=== PATIENT | female | born 1990 | race Asian ===

== ENCOUNTER 2017-03-21 21:26 | Inpatient (IN) | payer OTHER ==
[~2017-03-21] VITALS: Ht 170.2 cm; Wt 75.8 kg
[2017-03-21 21:42] VITALS: BP 95/65
[2017-03-21 23:55] VITALS: BP 114/72
[2017-03-22] VITALS (8 sets, daily range): BP systolic 95–106; BP diastolic 56–64
[2017-03-22] MEDS ORDERED: OXYTOCIN 30 UNITS IN 0.9% NaCl 500ML IV BAG (J2590) As Ordered ONE (00:42)
[2017-03-22 01:42] LABS: MEAN CORPUSCULAR HEMOGLOBIN 31.6 pg (27.0-33.0); MEAN CORPUSCULAR HGB CONC 36.2 g/dl (32.0-36.5); MEAN CORPUSCULAR VOLUME 87.2 fl (80.0-96.0); RED CELL DISTRIBUTION WIDTH 12.2 % (11.5-14.5)
[2017-03-22] MEDS ORDERED: OXYTOCIN DRIP 30 UNITS in APPROPRIATE DILUENT 1 EA IV SCH (03:07)
[2017-03-22] MEDS ORDERED: RHOGAM 300 MCG (1500 IU) INJ (J2790) IM SCH (03:15)
[2017-03-22] MEDS ORDERED: METOCLOPRAMIDE INJ 10MG/2ML VIAL (J2765) IV PRN (03:15)
[2017-03-22] MEDS ORDERED: IBUPROFEN 800 MG TAB PO PRN (03:15)
[2017-03-22] MEDS ORDERED: MEASLES,MUMPS,RUBELLA VACCINE INJ (MMR-II) (90707) SC SCH (03:15)
[2017-03-22] MEDS ORDERED: ACETAMINOPHEN TAB 650MG DOSE (2X325MG) PO PRN (03:15)
[2017-03-22] MEDS ORDERED: DIBUCAINE 1% OINTMENT 30GM TOP PRN (03:15)
--- NOTE | 2017-03-22 03:21 | DNPDOC ---
[facility] Delivery Note Delivery Note See hard chart for written H&P, Fauzia was down at admit DATE OF DELIVERY: [id number] at 0254 PREDELIVERY DIAGNOSIS: 40 6/7 weeks' gestation and labor. POST DELIVERY DIAGNOSIS: Delivered. PROCEDURE: Spontaneous vaginal delivery OUTBOARD TECHNICIAN: Dr. Albert ANESTHESIA: natural ESTIMATED BLOOD LOSS: 200 mL. FINDINGS: 6 pound 6 ounce female infant, Score 9/9, nuchal cord times 1, loose DELIVERY SUMMARY: Called to bedside, good effort unmedicated. No delay of the vtx or the ant/post shoulder. To abd, good tone and cry. Cord C/C by FOB. Cord blood. Placenta intact with slight traction/massage. Pit going wide open , fundus firm. No lacs noted. Uncomplicated. Sessions MD ALBERT,RUSTY Chavez MD Mar 22, 2017 03:20
[2017-03-22] MEDS: PRENATAL VITAMINS CHEWABLE TABLET PO SCH (09:56)
[2017-03-22] MEDS: DOCUSATE SODIUM 100 MG CAP PO SCH ×2 (09:57→21:00)
[2017-03-23 06:00] VITALS: BP 101/59
[2017-03-23] MEDS: DOCUSATE SODIUM 100 MG CAP PO SCH (08:14)
[2017-03-23] MEDS: PRENATAL VITAMINS CHEWABLE TABLET PO SCH (08:14)
[2017-03-23] MEDS ORDERED: COLA100C5 PO (11:05)
[2017-03-23] MEDS ORDERED: ACET50TA PO (11:06)
[2017-03-23] MEDS ORDERED: IBUP-1114 PO (11:06)
[2017-03-23 17:55] VITALS: BP 107/60
== END 2017-03-23 18:00 | disposition home or self-care (01) | DRG 775 ==
LOC: M LDO 21:26 → M LDI 03-22 00:21 → M OBS 03-22 11:43
PROVIDERS: ADMIT Obstetrics & Gynecology; ATTEND Obstetrics & Gynecology
PROC: 10E0XZZ Delivery of Products of Conception, External Approach (ICD-10-PCS; principal; 2017-03-22)
DX: O48.0 Post-term pregnancy (principal); Z37.0 Single live birth; Z3A.40 40 weeks gestation of pregnancy